=== PATIENT | female | born 1980 | race Caucasian/White ===

== ENCOUNTER 2023-03-20 08:15 | Outpatient (CLI) | payer BC | END 2023-03-20 08:16 | disposition home or self-care (01) | LOC: BICMAMMO 08:15 | PROVIDERS: ATTEND Family Medicine | DX: N63.11 Unspecified lump in the right breast, upper outer quadrant (principal) | CPT/HCPCS: 77066; G0279 ==

== ENCOUNTER → 2023-03-29 | Day surgery (SDC) | payer BC | LOC: BICULT 12:21 | PROVIDERS: ATTEND Family Medicine | PROC: 0H9T3ZX Drainage of Right Breast, Percutaneous Approach, Diagnostic (ICD-10-PCS; principal; 2023-03-29) | DX: D24.1 Benign neoplasm of right breast (principal) | CPT/HCPCS: 19083; 88305 ==